=== PATIENT | male | born 1980 | race American Indian/Alaskan Native ===

== ENCOUNTER 2017-02-22 11:25 | Emergency (ER) | payer OTHER ==
[2017-02-22 11:40] VITALS: BP 196/113
[2017-02-22] MEDS ORDERED: NORCO 5/325 PO ONE (13:00)
[2017-02-22] MEDS ORDERED: MOTRIN PO ONE (13:01)
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
--- NOTE | 2017-02-22 14:09 | XRay Report ---
CERVICAL SPINE, 3 views: History: Neck pain. Findings: The vertebral bodies, disk spaces, posterior elements and prevertebral soft tissues are unremarkable. Mild degenerative disc disease at C5-6 and C6-7 is noted. The dens is intact. No acute fracture or malalignment is identified. Impression: Mild cervical spondylosis. No evidence for acute injury to the cervical spine.
--- NOTE | 2017-02-22 14:09 | XRay Report ---
LUMBOSACRAL SPINE, 3 VIEWS: History: Back pain Findings: The vertebral bodies, disk spaces and posterior elements are intact. No compression deformity or malalignment. The SI joints are symmetric and unremarkable. Impression: 1. No evidence for acute injury to the lumbar spine.
== END 2017-02-22 14:56 | disposition home or self-care (01) ==
LOC: ED 11:25
DX: S39.012A Strain of muscle, fascia and tendon of lower back, initial encounter (principal); V89.2XXA Person injured in unspecified motor-vehicle accident, traffic, initial encounter; Y93.89 Activity, other specified; Y92.89 Other specified places as the place of occurrence of the external cause; Y99.8 Other external cause status
CPT/HCPCS: 72040; 72100; 93005; 93010